=== PATIENT | female | born 1955 | race Caucasian/White ===

== ENCOUNTER 2025-02-21 08:50 | Outpatient (AMB) | payer BC, SELFPAY ==
--- OUTSIDE RECORDS SUMMARY | 2023-10-20 08:15 | XMS_ITS ---
Author Organization [facility] Address [address] [facility] [place] [address] Care Team Providers Care Terrazzo Tile Setter Name Role Phone Redd Cisse Primary Care Provider Unavaila ble Black, Sadie Unavailable [phone] Allergies Allergen (clinical drug ingredient) Drug/Non Drug Allergy documented on EMR Reaction Allergy Type Onset Date Status amoxicillin Amoxicillin Unknown Drug Allergy Act stanley amoxicillin / clavulanate Augmentin Unknown Drug Allergy Active sulfamethoxazole / trimethoprim Bactrim Unknown Drug Allergy Active phenytoin Dilantin Unknown Drug Allergy Active carbamazepine TEGretol Unknown Drug Allergy Act stanley amLODIPine Benzoate Unknown Drug Allergy Active REASON FOR VISIT PCP: 06/2023., Ankle pain, Foot pain Medications Medication SIG (Take, Route, Frequency, Duration) Notes Start Date End Date Status Omeprazole 20 MG 1 capsule 30 minutes before morning meal Orally Once a day; Duration: 30 day(s) 06/18/2023 Active Fenofibrate Micronized 200 MG Oral; Duration: 90 Days Acti ve Atorvastatin Calcium 20 MG Oral; Duration: 90 Days Active Divalproex Sodium 500 MG Oral; Duration: 90 Days Active amLODIPine Besylate 5 MG Oral; Duration: 90 Days Active Social History Tobacco Use: Social History Observation Description Date Details (start date - stop date) Never Smoker NA - NA Tobacco Use/Smoking Question Answer Notes Are you a: nonsmoker Additional Findings: Tobacco Non-User Current no n-smoker Alcohol Screen Question Answer Notes Did you have a drink containing alcohol in the p ast year? No Points 0 Interpretation Negative Tobacco use other than smoking: Question Answer Notes Are you an other tobacco user? No Vital Signs Height 5ft 4in in 10/20/2023 Weight 160 lbs 10/20/2023 BMI 27.46 kg/m2 10/20/2023 Encounters Encounter Location Date Provider [facility] [place] [address] 10/20/2023 Sadie Castellanos Arthralgia of right ankle M25.571 ; Osteoarthritis of right ankle or foot M19.071 ; Neuritis M79.2 ; Sprain of unspecified ligament of right ankle, initial encounter S93.401A ; Neuropathy G62.9 ; Sprain of anterior talofibular ligament of right ankle, initial encounter S93.491A ; Pronation of right foot M21.6X1 and Pronation of left foot M21.6X2 Assessments Encounter Date Diagnosis (ICD Code) Assessment Notes Treatment Notes Treatment Clinical Notes Section Notes 10/20/2023 Arthralgia of right ankle (ICD-10 - M25.571) 10/20/2023 Osteoarthritis of right ankle or foot (ICD-10 - M19.071) 10/20/2023 Neuritis (ICD-10 - M79.2) 10/20/2023 Sprain of unspecified ligament of right ankle, initial encounter (ICD-10 - S93.401A) 10/20/2023 Neuropathy (ICD-10 - G62.9) 10/20/2023 Sprain of anterior talofibular ligament of right ankle, initial encounter (ICD-10 - S93.491A) 10/20/2023 Pronation of right foot (ICD-10 - M21.6X1) 10/20/2023 Pronation of left foot (ICD-10 - M21.6X2) Plan Of Treatment Next Appt Details Follow Up: 2 Months, Reason: Progress Notes * Kandace HOWARD ADOB:1955 (70 yo F)Acc No.[id number]:10/20/2023 Progress Note Patient: Kandace REAL Provider: Champ Castellanos DPM :1955 A ge:68 Y S ex:Female Date:10/20/2023 Address:[address] [place] [address] , [place], [id number] Pcp:Redd Cisse Subjective: * Chief Complaints: * 1 . PCP: 06/2023.. 2. Ankle pain. 3. Foot pain. * HPI: A nkle Pain: Nature: a patricia , tenderness. Location: , Outside aspect of the Right ankle. Duration: s everal years. Onset/Cause: , gradual. Course: w orse OVER THE LAST YEAR. Aggravated by: a ny pressure, standing, walking,otc INSERTS. Treatments: r est/alter normal daily activity , pre-fabricated innersoles. Severity/Quality: m oderate. F oot Pain: Nature: s harp , burning. Location: B ottom , B/L. Duration: s everal years. Onset: g radual. Course: w orse. Aggravated: W orse at night when in bed. Treatments: T OPICAL LOTION , Custom-compounded topical anti-inflammatory cream. * ROS: G eneral/Constitutional: Nausea d enies. V omiting d enies. H jordyn Thirst d enies. L oss appetite d enies. C hills d enies. F atigue d enies.?Fever d enies. N ight Sweats d enies. U nexplained weight loss d enies. U nexplained weight gain d enies. H EENTM: Dentures d enies. D izziness d enies. G lasses/contacts d enies. R etinopathy d enies. B lurred/double vision d enies. T MJ?admits. D ischarge/drainage d enies. I mplants d enies. S ore throat d enies. D ental implants d enies. H diego of hearing d enies. D ifficulty chewing/swallowing/speaking d enies. N ose bleeds d enies. S ore mouth d enies. ? R espiratory: On Oxygen d enies. P neumonia/pleurisy d enies.?Bronchitis d enies. E mphysema d enies. C oughing d enies. C ough blood?denies. S hortness of breath d enies. W heezing d enies. C ardiovascular: Pacemaker d enies. M PAPER REWINDER OPERATOR d enies. W PW d enies. C HF d enies. H eart attack d enies. S eptal defect d enies. R apid beat d enies. C hest pain d enies. A trial Fib. d enies. M urmur/Palpitations d enies. G astrointestinal: Hemorrhoids d enies. S tomach/Abdominal pain d enies. D ark blood stool d enies. I rritable bowel d enies. C onstipation d enies. D iarrhea d enies. H ematology: Swelling d enies. C lots d enies. V aricose Veins d enies. B ruising d enies. B leeding problem d enies. G enitourinary: Blood urine d enies. F requent/Painfu/urination/bladder control d enies. K idney stones d enies. I nfection (UTI) d enies. N ephropathy d enies. s ex trans dis (STD) d enies. P rostate d enies. M usculoskeletal: Hammertoes d enies. B unions d enies. B ack Pain a dmits. M uscle Cramps/ Resting a dmits. M uscle cramps / walking a dmits.?Generalized aches and pains d enies. W eakness d enies. I nteg.: Haskins d enies. S cars d enies. C orns/calluses?denies. I ngrown nails d enies. P ainful nails d enies. O pen Sores d enies. R ashes d enies. N eurologic: Difficulty sleeping d enies. B rain disorder d enies. N umbness d enies. B alance trouble d enies. C onfusion d enies. F ainting/blackouts d enies. T ingling d enies. T remors d enies. * Medical History: A rthritis, Back,Hip,and Knee pain, Cataracts, Covid-19, Epilepsy, Headaches/Migraines, Hiatal hernia, High blood pressure, Reflux ( GERD), Sciatica, Sinusitis, Chicken pox. * Surgical History: c ataract surgery 2021. * Family History: M other: alive, arthritis. F ather: , arthritis, cancer, kidney/liver disease, heart attack, high blood pressure, poor circulation. * Social History: T obacco Use: T obacco Use/Smoking A re you a: n onsmoker A dditional Findings: Tobacco Non-User C urrent non-smoker Tobacco use other than smoking A re you an other tobacco user? N o D rugs/Alcohol: D rugs H ave you used drugs other than those for medical reasons in the past 12 months? N o Alcohol Screen D id you have a drink containing alcohol in the past year? N o P oints 0 I nterpretation N egative M iscellaneous: C affeine: yes. Children: yes, 2. Exercise: no. Marital status: . * Medications: T aking Divalproex Sodium 500 MG Tablet Delayed Release Oral , Taking Atorvastatin Calcium 20 MG Tablet Oral , Taking Fenofibrate Micronized 200 MG Capsule Oral , Taking Omeprazole 20 MG Capsule Delayed Release 1 capsule 30 minutes before morning meal Orally Once a day , Taking amLODIPine Besylate 5 MG Tablet Oral , Medication List reviewed and reconciled with the patient * Allergies: B actrim, Dilantin, TEGretol, amLODIPine Benzoate, Augmentin, Amoxicillin. Objective: * Vitals: H t: 5ft 4in, Wt:160, BMI:27.46, Shoe size: 10, Ht-cm: 162.56 cm, Wt-k.57 kg. * Examination: G eneral Examination: GENERAL APPEARANCE: R stephaneals a pleasant, alert, well nourished, well-developed, well hydrated individual, who demonstrates proper attention to hygiene/body habitus, and is in no acute distress, Pt serves as own historian for office visit today. ORIENTED: p erson, place, and time. O rthopedic: MUSCLE STRENGTH: 5 /5 all groups in a symmetrical fashion, B/L. GAIT ABNORMALITY: P ronated , abducted angle and base of gate , B/L. FOOT MORPHOLOGY: P t is able to toe raise with heels inverted , Pes Planus structure , Semi-rigid b/l , Decreased Ankle joint dorsiflexion ROM, knee extended.? BUNION: M edially prominent 1st MPJ , B/L. DIGITAL DEFORMITIES: D igital contracture, PIPJ, 2-5 B/L, incompl-reducible with WB, or to push-up test, no over, nor underlapping. ANKLE PAIN LOCATED: R IGHT , Lateral ankle , (+) swelling , Pain on palpation to , ATFL , PTFL , No pain at , Peroneal tendons, adipose tiees present lateral ankles b/l. FOOTWEAR EVALUATION: W orn, non-supportive, shoe gear properties exacerbate patients foot/toe deformity, OT are non-supportive providing cushion only no support. V ascular: DP PULSES (B): 2 /4, B/L. PT PULSES (B): 2 /4, B/L. CAPILLARY FILL TIME: i mmediate, all digits, B/L. TROPHIC CONDITION-TEXTURE/ELASTICITY/TURGOR/HAIR GROWTH (B):?normal , B/L. TEMPERTURE GRADIENT (C): n ormal, warm to cool, proximal to distal, B/L. PIGMENTATION: n ormal, B/L. EDEMA (C): 1 /4 , Ankle(s) , B/L. X -Rays - IMAGING REPORT: Clinical Indication(s): Evaluate for Fracture, Evaluate Biomechanical Deformity. Views: 3 views of Ankle, AP, LAT, LO , Are reviewed with the Pt. Findings: n ormal bone and soft tissue density consistent for patients age and sex , asymmetrical Ankle joint space narrowing , anteriorly , posteriorly , medial gutter , lateral gutter. Foot structure: r eveals excess pronation with , anterior break in cyme line. Fracture: N egative fractures identified. ? N eurological: SENSORY: N eurological exam reveals intact sensorium, pain sensation normal, vibration sensation intact, pinprick sensation is normal in the lower extremities, Pt denies, anesthesia, burning, paresthesia, tingling, B/L. Assessment: * Assessment: 1. A rthralgia of right ankle - M25.571 2 . O steoarthritis of right ankle or foot - M19.071 S pecify :Acute problem, Complicated w/ Multiple Tx Options(4),Dx New problem, Prognosis Uncertain (4) 3 . N euritis - M79.2 4 . S prain of unspecified ligament of right ankle, initial encounter - S93.401A 5 . N europathy - G62.9 ?6. S prain of anterior talofibular ligament of right ankle, initial encounter - S93.491A 7. P ronation of right foot - M21.6X1 8 . P ronation of left foot - M21.6X2 Plan: * Treatment: * Follow Up: 2 Months * Images: * The named appointment provid er may or may not be the originator of this progress note, and it is not deemed complete until electronically signed by the appointment provider. Sign off status: Pending * Provider: Champ Castellanos DPM Date: 0 10/20/2023 Generated for Lon kaufman/Roseline/eTransmitting on: 0 02/21/2025 09:31 AM EDT History and Physical Notes * HPI (History of Present Illness) Category Sub-Category Detail Notes Category Not es Ankle Pain Duration: several years Nature: aching , tenderness Severity/Quality: moderate Treatments: rest/alter normal da micheal activity , pre-fabricated innersoles Course: worse OVER THE LAST YEAR Location: , Outside aspect of the Right ankle Onset/Cause: , gradual Aggravated by: any pressure, standi ng, walking,otc INSERTS Foot Pain Nature: sharp , burning Location: Bottom , B/L Duration: several years Onset: gradual Course: worse Aggravated: Worse at night when in bed Treatments: TOPICAL LOTION , Cus isaac-compounded topical anti-inflammatory cream Examination Category Sub-Category Detail Notes Category Not es Neurological SENSORY: Neurological exa m reveals intact sensorium, pain sensation normal, vibration sensation intact, pinprick sensation is normal in the lower extremities, Pt denies, anesthesia, burning, paresthesia, tingling, B/L Orthopedic GAIT ABNORMALITY: Pronated , abd ucted angle and base of gate , B/L FOOT MORPHOLOGY: Pt is able to toe ra ise with heels inverted , Pes Planus structure , Semi-rigid b/l , Decreased Ankle joint dorsiflexion ROM, knee extended BUNION: Medially prominent 1 st MPJ , B/L ANKLE PAIN LOCATED: RIGHT , Lateral ankl e , (+) swelling , Pain on palpation to , ATFL , PTFL , No pain at , Peroneal tendons, adipose tiees present lateral ankles b/l FOOTWEAR EVALUATION: Worn, non-supportiv e, shoe gear properties exacerbate patients foot/toe deformity, OT are non-supportive providing cushion only no support DIGITAL DEFORMITIES: Digital contracture , PIPJ, 2-5 B/L, incompl-reducible with WB, or to push-up test, no over, nor underlapping MUSCLE STRENGTH: 5/5 all groups in a symmetrical fashion, B/L General Examination GENERAL APPEARANCE: Reveals a pleasant, alert, well nourished, well-developed, well hydrated individual, who demonstrates proper attention to hygiene/body habitus, and is in no acute distress, Pt serves as own historian for office visit today ORIENTED: person, place, and t kimber[facility] DP PULSES (B): 08/08, B/L PT PULSES (B): 08/08, B/L CAPILLARY FILL TIME: immediate, all digi ts, B/L TEMPERTURE GRADIENT (C): normal, warm to cool, proximal to distal, B/L TROPHIC CONDITION-TEXTURE/ELASTICITY/TURGOR/HAIR GROWTH (B): normal , B/L EDEMA (C): 07/08 , Ankle(s) , B/L PIGMENTATION: normal, B/L X-Rays - IMAGING REPORT Findings: normal b one and soft tissue density consistent for patients age and sex , asymmetrical Ankle joint space narrowing , anteriorly , posteriorly , medial gutter , lateral gutter Fracture: Negative fractures i dentified Foot structure: reveals excess prona tion with , anterior break in cyme line Views: 3 views of Ankle, AP , LAT, LO , Are reviewed with the Pt Clinical Indication(s): Evaluate for Fra cture, Evaluate Biomechanical Deformity
--- NOTE | 2025-02-21 08:56 | A.OFFVIS_ITS ---
Intake Visit Reasons: not feeling well asked to be seen sooner Accompanied by: Spouse Allergies benazepril Allergy (Unknown, Verified 02/21/25 09:02) Unknown Medication List - Last Reconciled 02/21/25 by Phyllis Jones CNP amlodipine 5 mg PO DAILY atorvastatin (Lipitor) 20 mg PO DAILY cholecalciferol (vitamin D3) 25 mcg PO DAILY divalproex (Depakote) 500 mg PO BID 90 days fenofibrate micronized 200 mg PO DAILY meclizine 25 mg PO TID omeprazole 20 mg PO DAILY HPI Comments Details: She started with vertigo on 02/02/2025. She has been using OTC meclizine 12.5-25mg as needed depending on severity of symptoms which seems to be helping, but makes her tired and she was unsure how long to take medication for. She was taking medication during the day. She felt like the room was spinning when laying or turning her head to the left side. Occasionally, it happened when laying flat on her back. It lasted about 10-45 seconds. She had some ringing on and off in left ear and left ear felt blocked at times. No decrease in hearing. Some occasional headaches. No recent cold or flu-like illness. Eyes are okay, no change in vision. No seizures. She has history of seizure disorder since 1992 that has been well controlled with Depakote. No seizure recurrence since 02/1993. No medication side effects. In 2005, she developed right-sided sciatica and herniated lumbar disc that resolved without surgery. Celiac disease controlled with gluten free diet. Review of Systems Const Denies chills, Denies daytime sleepiness, Denies difficulty sleeping, Denies f atigue, Denies fever(s), Denies frequent falls, Denies headache(s), Denies increased appetite, Denies poor appetite, Denies snoring, Denies weakness, Denies weight gain and Denies weight loss Eyes Denies loss of vision ENT Denies vertigo, Denies dizziness, Denies headache(s) and Denies neck pain Card Denies chest pain at rest, Denies chest pain with activity, Denies syncope, Denies leg edema, Denies palpitations, Denies dyspnea and Denies dyspnea on exertion Resp Denies cough, Denies dyspnea, Denies dyspnea on exertion and Denies snoring GI Denies abdominal pain, Denies constipation, Denies heartburn, Denies diarrhea and Denies nausea Denies urinary frequency, Denies urinary incontinence and Denies urinary urgency Musc Denies abnormal gait, Denies back pain, Denies myalgias, Denies arthralgias, Denies neck pain, Denies numbness and Denies tingling Neuro Denies abnormal gait, Denies vertigo, Denies dizziness, Denies syncope, Denies frequent falls, Denies headache(s), Denies lack of coordination, Denies loss of vision, Denies memory loss, Denies numbness, Denies Other visual disturbances, Denies restless legs, Denies seizure-like activity, Denies tingling, Denies paresthesias, Denies tremor(s) and Denies weakness Psych Denies anxiety, Denies depression, Denies auditory hallucinations, Denies memory loss and Denies visual hallucinations Endo Denies fatigue and Denies palpitations Physical Exam Const Other: General Appearance:? normal, in no acute distress. Heart:? S1, S2 normal, no murmurs. Lungs:? clear anteriorly and posteriorly. Musculoskeletal:? normal. Extremities:? no edema. Psych:? alert, oriented, cognitive function intact, cooperative with exam. Neuro Other: Abnormal Neurological Findings:?none.? Mental Status: alert and oriented X 3. Normal attention, orientation, memory, and affect. Cranial Nerves: Pupils are equal, round, and reactive to light. External ocular muscles are intact. Visual fatima are full, no ptosis. Face is symmetrical, no facial weakness or droop. Facial sensations are normal. Tongue protrudes in midline. Palate elevates symmetrically. Shoulder shrugging is normal Motor Examination: Normal muscle tone, bulk and strength. No atrophy or fasciculations. No drift of the extended upper extremities. DTR 2+. Plantars are flexor. Sensory Exam: Normal light touch, temperature, pinprick, vibration, and joint- position sensations. Rhomberg sign is absent. Coordination: No ataxia. No titubation. Bqlhas-wp-ywaq, bwpq-aghd-ndan test, and rapid alternating movements were normal. Gait Exam: Within normal limits. Cerebellar Signs: Xwfsxa-cy-juyr and bcvx-ll-lnvz is normal. No dysdiadocho kinesia. Extrapyramidal System: No tremor, rigidity with normal facial expressions. No bradykinesia. No bradyphrenia. Normal arm swing and posture. No propulsion or retropulsion. Speech: Normal. No dysphasia or dysarthria. Results Reviewed Results Reviewed: 11/02/2024 VA: 86 12/01/23 VA 69 10/20/[address] 01/20/22 negative Assessment & Plan Assessment & Plan (1) Epilepsy: Code(s): G40.909 - Epilepsy, unspecified, not intractable, without status epilepticus Category: Medical Qualifiers: Epilepsy type: unspecified Intractability: not intractable Status epilepticus: without status epilepticus Qualified Code(s): G40.909 - Epilepsy, unspecified, not intractable, without status epilepticus Plan: Continue divalproex sodium delayed release 500mg 1 tablet twice a day. (2) Vertigo: Code(s): R42 - Dizziness and giddiness Category: Medical Plan: Start meclizine 12.5mg 1 tablet at bedtime x1 week then 1 tablet twice a day as needed for dizziness, use/side effects reviewed. Depakote level ordered r/o toxiciticy. Orders: Orders Valproate Today G40.909 - Epilepsy, unspecified, not intractable, without status epilepticus Medications: New meclizine 12.5 mg orally 1 tab at bedtime x1 week then 1 tab BID as needed for dizziness; 60 tabs 2RF 30 days Discontinued meclizine Discontinued Reason: Order 25 mg PO TID Coding Level of Care Code Est Pt Level 4 (97389) Diagnoses Nonintractable epilepsy without status epilepticus, unspecified epilepsy type G40.909 Epilepsy type: unspecified Intractability: not intractable Status epilepticus: without status epilepticus Vertigo R42
--- OUTSIDE RECORDS SUMMARY | 2025-02-21 09:31 | XMS_ITS | Encounter Summary ---
Author Organization [facility] Address [address] [place] [address] Phone Care Team Providers Care Social Problems Specialist Name Role Phone Nader Martines DIRECTOR OF ATHLETICS Primary Care Provider [phone] Encounter Details Date Type Department Care Team (Late st Contact Info) Description 12/06/2020 Documentation Only [facility] [address] [place] [id number] Jazmyne Carmona MA Social History Tobacco Use Types Packs/Day Years Used Date Smoking Tobacco: Never Assessed Comments Unknown Sex and Gender Information Value Date Recorded Sex Assigned at Not on file Legal Sex Female 9:48 AM EDT Gender Identity Not on file Sexual Orientation Not on file COVID-19 Exposure Response Date Recorded In the last month, have you been in contact with someone who was confirmed or suspected to have Coronavirus / COVID-19? No / Unsure 11/28/2020 11:08 AM EDT documented as of this encounter Plan of Treatment Not on file documented as of this encounter Visit Diagnoses Not on filedocumented in this encounter Care Teams Social Problems Specialist Relationship Specialty Start Date End Date Nader Martines NP [address] [place] [address] PCP - General Internal Medicine 10/31/20 documented as of this encounter
--- OUTSIDE RECORDS SUMMARY | 2025-02-21 09:31 | XMS_ITS | Clinical Summary ---
Author Organization [facility] Address [address] [place] [address] Care Team Providers Care Pottery Striper Name Role Phone Yoli Monge MD Primary Care Provider Allergies Active Allergy Reactions Criticality Noted Date Comments Amoxicillin-Pot Clavulanate GI Intolerance 01/02 Phenytoin Hives 01/16/2017 Penicillins GI Intolerance 01/16/2017 Sulfa (Sulfonamide Antibiotics) Hives 01/02 Carbamazepine Hives 01/16/2017 Medications divalproex (DEPAKOTE) 500 MG EC tabletIndicatio ns:also to take 250mg at noon time Take 500 mg by mouth every morning & every evening. Active atorvaSTATin (LIPITOR) 20 MG tablet Take 20 mg by mouth daily. Active fenofibrate (TRIGLIDE) 160 MG tablet Take 160 mg by mouth daily. Active omeprazole [address] tablet Take 20 mg by mouth daily. Active oxyCODONE (ROXICODONE) 5 MG immediate release tablet Take 1 tablet (5 mg total) by mouth every 4 hours as needed for pain. Dispense only nine tabs, no refils 9 tablet 01/16/2017 Active Social History Tobacco Use Types Packs/Day Years Used Date Smoking Tobacco: Never Alcohol Use Standard Drinks/Week Comments No 0 (1 standard drink = 0.6 oz pur e alcohol) Comments Unknown Sex and Gender Information Value Date Recorded Sex Assigned at Not on file Legal Sex Female 1:06 PM EDT Gender Identity Not on file Sexual Orientation Not on file Last Filed Vital Signs Vital Sign Reading Time Taken Comments Blood Pressure 108/82 01/16/2017 7:00 PM EDT Pulse 81 01/16/2017 7:00 PM EDT Temperature 36.6 C (97.9 F) 01/16/2017 1:13 PM EDT Respiratory Rate 16 01/16/2017 7:00 PM EDT Oxygen Saturation 94% 01/16/2017 7:00 PM EDT Inhaled Oxygen Concentration - - Weight - - Height 160 cm (5' 3 ) 01/16/2017 1:06 PM EDT Body Mass Index - - Plan of Treatment Not on file [place] [address] [place] [address] Care Teams Pottery Striper Relationship Specialty Start Date End Date Yoli Monge MD [address] [place] [address] PCP - General Internal Medicine 01/16/17
== END 2025-02-21 09:18 | disposition home or self-care (01) ==
LOC: HO.HSM 08:51
PROVIDERS: PCP Internal Medicine; Visit Provider Registered Nurse
DX: G40.909 Epilepsy, unspecified, not intractable, without status epilepticus (principal); R42 Dizziness and giddiness
CPT/HCPCS: 99214

== ENCOUNTER 2025-06-13 13:03 | Outpatient (AMB) | payer BC, SELFPAY ==
--- OUTSIDE RECORDS SUMMARY | 2025-06-07 23:59 | XMS_ITS | Continuity of Care Document ---
Author Organization [facility] [place] Address [address] [place] [address]- Care Team Providers Care Washing Tub Operator Name Role Phone Redd Villatoro Primary Care Physician Encounter [facility] Date(s): 05/08/25 - 06/07/25 [facility] [place] [address] [place] [address]- Encounter Type: Triage Allergies, Adverse Reactions, Alerts Substance Criticality Severity Reaction Reaction Severity Status benazepril Low criticality Mild Act stanley penicillins Active TEGretol Active sulfa drugs Active Dilantin Active Immunizations Given and Recorded Vaccine Date Status Refusal Reason tetanus/diphtheria/pertussis, acel(Tdap) 11/09/24 Given influenza virus vaccine, inactivated 04/18/24 Nathan rded influenza virus vaccine, inactivated 05/14/23 Nathan rded influenza virus vaccine, inactivated 04/02/22 Nathan rded influenza virus vaccine, inactivated 06/10/21 Nathan rded influenza virus vaccine, inactivated 04/19/19 Nathan rded influenza virus vaccine, inactivated 04/25/18 Nathan rded influenza virus vaccine, inactivated 04/08/18 Give n SARS-CoV-2(COVID-19)mRNA-LNP vac([id number]) 04/18/24 Recorded [id number] 12y+ bivalent booster vax 04/16/22 Given SARS-CoV-2 (COVID-19) mRNA BNT-162b2 vac 1 07/04/21 Recorded SARS-CoV-2 (COVID-19) mRNA BNT-162b2 vac 09/28/20 Recorded SARS-CoV-2 (COVID-19) mRNA BNT-162b2 vac 09/07/20 Recorded Influenza Virus Vaccine (oldterm) 04/03/20 Recorde d Afluria (oldterm) 06/15/16 Given Fluzone Preservative-Free (oldterm) 05/20/15 Given 1Result Comment: given at [facility] Medications amLODIPine 5 mg oral tablet 1 tablet, By Mouth, Daily, # 90 tablet, 1 Refills, Maintenance, 05/23/25 12:48:00 PM EST, [employer] [id number], 166, cm, 03/22/25 9:59:00 EDT, Height Start Date: 05/23/25 Status: Ordered Medication Dispense Status: Completed Quantity: 90.0 Unit: tablet Total Allowed Fills: 1 Fills Dispensed: 0 atorvastatin 20 mg oral tablet 1 tablet, By Mouth, Daily at bedtime, # 90 tablet, 1 Refills, Maintenance, 05/23/25 12:48:00 PM EST, [id number], 166, cm, 03/22/25 9:59:00 EDT, Height Start Date: 05/23/25 Status: Ordered Medication Dispense Status: Completed Quantity: 90.0 Unit: tablet Total Allowed Fills: 1 Fills Dispensed: 0 Depakote 500 mg oral enteric coated tablet 1 tablet = 500 mg, By Mouth, 2 times a day, # 180 tablet, 0 Refills, Maintenance, 06/08/23 11:15:00 AM EST, Tablet, [facility]/pharm[facility] #[id number], Partial fill upon patient request if the prescription is for a schedule II opioid drug., 166, cm, 06/04/23 13:07:00 EST, Height, 67, kg, 11/06/22 14:29:00 EDT, Dry Weight Start Date: 06/08/23 Status: Ordered Medication Dispense Status: Completed Quantity: 180.0 Unit: tablet Total Allowed Fills: 1 Fills Dispensed: 0 EPINEPHrine 0.3 mg injectable solution = 0.3 mg, Intramuscular, Once, PRN anaphylaxis. may repeat if necessary, # 1 kit, 1 Refills, Soft Stop, 08/25/21 2:52:00 PM EST, [facility]/pharm[facility] #[id number], 160, cm, 08/25/21 14:12:00 EST, Height, 69.8, kg, 09/26/20 12:50:00 EDT, Dry Weight Start Date: 08/25/21 Status: Ordered Medication Dispense Status: Completed Quantity: 1.0 Unit: kit Total Allowed Fills: 2 Fills Dispensed: 0 fenofibrate 200 mg oral capsule 1 capsule, By Mouth, Daily, # 90 capsule, 1 Refills, Maintenance, 05/27/25 7:12:00 PM EST, [id number], 166, cm, 03/22/25 9:59:00 EDT, Height Start Date: 05/27/25 Status: Ordered Medication Dispense Status: Completed Quantity: 90.0 Unit: capsule Total Allowed Fills: 1 Fills Dispensed: 0 [employer] [place]-3 = 1,200 mg, By Mouth, 3 times a day, 0 Refills, Maintenance, 11/09/24 11:57:00 AM EDT, Partial fill upon patient request if the prescription is for a schedule II opioid drug. Start Date: 11/09/24 Status: Ordered Medication Dispense Status: Completed Total Allowed Fills: 1 Fills Dispensed: 0 magnesium sulfate/potassium sulfate/sodium sulfate 1.6 g-3.13 g-17.5 g/177 mL oral liquid See Instructions, Take the first 6 oz bottle with 48 oz water at 5PM night before before colonoscopy, and the second 6 oz bottle with 48 oz of water 6 hrs before colonoscopy., # 354 mL, 0 Refills, Maintenance, 03/22/25 10:18:00 AM EDT, [facility]/pharm[facility] #[id number], Partial fill upon patient request if the prescription is for a schedule II opioid drug., Take the first 6 oz bottle with 48 oz water at 5PM night before before colonoscopy, and the second 6 oz bottle with 48 oz of water 6 hrs before colonoscopy., 166, cm, 03/22/25 9:59:00 EDT, Height Start Date: 03/22/25 Status: Ordered Medication Dispense Status: Completed Quantity: 354.0 Unit: mL Total Allowed Fills: 1 Fills Dispensed: 0 Indications: Encounter for screening for malignant neoplasm of colon; Celiac disease; NuLYTELY [place] oral powder for reconstitution 240 mL, By Mouth, Every 10 minutes, # 1 each, 0 Refills, Maintenance, 05/06/23 11:33:00 AM EDT, REC Powder, [id number], Partial fill upon patient request if the prescription is for a schedule II opioid drug., 166, cm, 12/03/22 10:44:00 EDT, Height, 67, kg, 11/06/22 14:29:00 EDT, Dry Weight Start Date: 05/06/23 Status: Ordered Medication Dispense Status: Completed Quantity: 1.0 Unit: each Total Allowed Fills: 1 Fills Dispensed: 0 omeprazole 20 mg oral enteric coated capsule 1 capsule = 20 mg, By Mouth, 2 times a day, # 60 capsule, 2 Refills, Maintenance, 04/11/20 4:11:00 PM EDT, EC Capsule, 165.4, cm, 07/12/19 11:51:00 EST, Height, 80.6, kg, 12/08/18 13:26:00 EDT, Dry Weight Start Date: 04/11/20 Stop Date: 07/10/20 Status: Ordered Medication Dispense Status: Completed Quantity: 60.0 Unit: capsule Total Allowed Fills: 3 Fills Dispensed: 0 Vitamin D3 1000 intl units oral capsule See Instructions, 1 capsule By Mouth every day, 0 Refills, Maintenance, 07/12/19 11:38:00 AM EST Start Date: 07/12/19 Status: Ordered Medication Dispense Status: Completed Total Allowed Fills: 1 Fills Dispensed: 0 Problem List Condition Confirmation Course Effective Dates Status Health Status Informant Acute sinusitis Confirmed Active Cataract Confirmed Active Celiac disease Confirmed Active Chronic kidney disease, stage 3a 1 Confirmed Active epilepsy Confirmed Active Esophageal reflux Confirmed Active GERD (gastroesophageal reflux disease) Confirmed Active Hypercholesterolemia Confirmed Active Hyperlipidemia Confirmed Active Hypertension Confirmed Active Lumbar radiculopathy, right Confirmed Active Lymphocytosis Confirmed Active Right otitis media Confirmed Active Encounter for screening colonoscopy Confirmed Active Vitamin D deficiency Confirmed 05/09/18 Active 1Per chart review meeting GFR criteria Social History Social History Type Response Smoking Status Never (less than 100 in lifetime) entered on: 11/06/22 Sex Sex Representation Female (finding) Patient Care team information Care Team Personnel Name: Redd Villatoro Position: S PCO Associate Professional Member Role: PCP Address: [address] [place] [address] [place], [place] [address] Telecom: Care Team Related Persons Name: CARLOS HOWARD Insurance Providers Guarantor name: NOEMÍ HOWARD Health Plan Information #: 1 Payer: [employer] P[employer] Payer Identifier: NA Member Number: [id number] Group Number: [id number] Subscriber Identifier: NA Relationship to Subscriber: self Coverage Type: Medicare PPO Coverage Verification Date: NA Telecom: NA Address: NA
--- NOTE | 2025-06-13 13:05 | A.OFFVIS_ITS ---
Intake Visit Reasons: 6m Accompanied by: Spouse Allergies benazepril Allergy (Unknown, Verified 06/13/25 13:07) Unknown Medication List - Last Reconciled 06/13/25 by Phyllis Jones CNP amlodipine 5 mg PO DAILY atorvastatin (Lipitor) 20 mg PO DAILY cholecalciferol (vitamin D3) 25 mcg PO DAILY divalproex (Depakote) 500 mg PO BID 90 days fenofibrate micronized 200 mg PO DAILY meclizine 12.5 mg orally 1 tab at bedtime x1 week then 1 tab BID as needed for dizziness; 30 days omeprazole 20 mg PO DAILY HPI Comments Details: She was doing okay. She was taking Depakote twice a day, no medication side effects. No seizures. No further episodes of vertigo, meclizine as needed helped. Sleep was okay. She had episode of vertigo in 02/2025. She felt like the room was spinning when laying or turning her head to the left side. Occasionally, it happened when laying flat on her back. It lasted about 10-45 seconds. She had some ringing on and off in left ear and left ear felt blocked at times. No decrease in hearing. Some occasional headaches. No recent cold or flu-like illness. She has history of seizure disorder since 1992 that has been well controlled with Depakote. No seizure recurrence since 02/1993. No medication side effects. In 2005, she developed right-sided sciatica and herniated lumbar disc that resolved without surgery. Celiac disease controlled with gluten free diet. Review of Systems Const Denies chills, Denies daytime sleepiness, Denies difficulty sleeping, Denies fatigue, Denies fever(s), Denies frequent falls, Denies headache(s), Denies increased appetite, Denies poor appetite, Denies snoring, Denies weakness, Denies weight gain and Denies weight loss Eyes Denies loss of vision ENT Denies vertigo, Denies dizziness, Denies headache(s) and Denies neck pain Card Denies chest pain at rest, Denies chest pain with activity, Denies syncope, Denies leg edema, Denies palpitations, Denies dyspnea and Denies dyspnea on exertion Resp Denies cough, Denies dyspnea, Denies dyspnea on exertion and Denies snoring GI Denies abdominal pain, Denies constipation, Denies heartburn, Denies diarrhea and Denies nausea Denies urinary frequency, Denies urinary incontinence and Denies urinary urgency Musc Denies abnormal gait, Denies back pain, Denies myalgias, Denies arthralgias, Denies neck pain, Denies numbness and Denies tingling Neuro Denies abnormal gait, Denies vertigo, Denies dizziness, Denies syncope, Denies frequent falls, Denies headache(s), Denies lack of coordination, Denies loss of vision, Denies memory loss, Denies numbness, Denies Other visual disturbances, Denies restless legs, Denies seizure-like activity, Denies tingling, Denies paresthesias, Denies tremor(s) and Denies weakness Psych Denies anxiety, Denies depression, Denies auditory hallucinations, Denies memory loss and Denies visual hallucinations Endo Denies fatigue and Denies palpitations Physical Exam Const Other: General Appearance:? normal, in no acute distress. Heart:? S1, S2 normal, no murmurs. Lungs:? clear anteriorly and posteriorly. Musculoskeletal:? normal. Extremities:? no edema. Psych:? alert, oriented, cognitive function intact, cooperative with exam. Neuro Other: Abnormal Neurological Findings:?none.? Mental Status: alert and oriented X 3. Normal attention, orientation, memory, and affect. Cranial Nerves: Pupils are equal, round, and reactive to light. External ocular muscles are intact. Visual fatima are full, no ptosis. Face is symmetrical, no facial weakness or droop. Facial sensations are normal. Tongue protrudes in midline. Palate elevates symmetrically. Shoulder shrugging is normal Motor Examination: Normal muscle tone, bulk and strength. No atrophy or fasciculations. No drift of the extended upper extremities. DTR 2+. Plantars are flexor. Sensory Exam: Normal light touch, temperature, pinprick, vibration, and joint- position sensations. Rhomberg sign is absent. Coordination: No ataxia. No titubation. [id number], [id number] test, and rapid alternating movements were normal. Gait Exam: Within normal limits. Cerebellar Signs: [id number] is okay. Extrapyramidal System: No tremor, rigidity with normal facial expressions. No bradykinesia. No bradyphrenia. Normal arm swing and posture. No propulsion or retropulsion. Speech: Normal. Results Reviewed Results Reviewed: 05/04/2025 VA: 40 (slightly low, last dose was night prior) 11/02/2024 VA: 86 12/01/23 VA 69 10/20/[address] 01/20/22 negative Assessment & Plan Assessment & Plan (1) Epilepsy: Code(s): G40.909 - Epilepsy, unspecified, not intractable, without status epilepticus Category: Medical Qualifiers: Epilepsy type: unspecified Intractability: not intractable Status epilepticus: without status epilepticus Qualified Code(s): G40.909 - Epilepsy, unspecified, not intractable, without status epilepticus Plan: Continue divalproex sodium delayed release 500mg 1 tablet twice a day. Follow up in 6 months or sooner as needed. (2) Vertigo: Code(s): R42 - Dizziness and giddiness Category: Medical Plan: Continue meclizine 12.5mg 1 tablet twice a day as needed for dizziness #60 for 30 days. Coding Level of Care Code Est Pt Level 4 (06904) Diagnoses Nonintractable epilepsy without status epilepticus, unspecified epilepsy type G40.909 Epilepsy type: unspecified Intractability: not intractable Status epilepticus: without status epilepticus Vertigo R42
--- OUTSIDE RECORDS SUMMARY | 2025-06-13 20:09 | XMS_ITS | Clinical Summary ---
Author Organization [facility] Address [address] [place] [address] Care Team Providers Care Tax Assessor Name Role Phone Yoli Monge MD Primary [...] Plan of Treatment Not on file [place] [place] [address] Care Teams Tax Assessor Relationship Specialty Start Date End Date Yoli Monge MD [address] [place] [address] PCP - General Internal Medicine 01/16/17
--- OUTSIDE RECORDS SUMMARY | 2025-06-13 20:10 | XMS_ITS | Patient Health Record ---
Author Organization [facility] Address [address] [facility] [place] [address] Care Team Providers Care Car Seat Coverer Name Role Phone Redd Cisse Primary Care Provider Unavaila john Black, Sadie Unavailable [phone] Allergies Allergen (clinical drug ingredient) Drug/Non Drug Allergy documented on EMR Reaction Allergy Type Onset Date Status amoxicillin Amoxicillin Unknown Drug Allergy Act stanley amoxicillin / clavulanate Augmentin Unknown Drug Allergy Active sulfamethoxazole / trimethoprim Bactrim Unknown Drug Allergy Active phenytoin Dilantin Unknown Drug Allergy Active carbamazepine TEGretol Unknown Drug Allergy Act stanley amLODIPine Benzoate Unknown Drug Allergy Active Reason For Referral No Information Medications Medication SIG (Take, Route, Frequency, Duration) [...] Are you an other tobacco user? 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) Active confirmed Problem Localized, primary osteoarthritis of the ankle and/or foot (758405764) Osteoarthritis of left ankle or foot (M19.072) Active confirmed Plan Of Treatment No Information Insurance Providers Payer Name Payer Address Payer Phone Subscriber Number Group Number Insured Name Patient Relationship to Insured Coverage Start Date Coverage End Date [employer] 65 Medicare Preferred [address] [place] [address] [id number] Kandace Ortiz Self - patient is the insured Medical (General) History Medical History History ICD Code Arthritis Back,Hip,and Knee pain Cataracts covid-19 Epilepsy Headaches/Migraines Hiatal hernia High blood pressure Reflux ( GERD) Sciatica sinusitis Chicken pox Surgical History Surgery Date(Month/Year) cataract surgery 2021
== END 2025-06-13 13:19 | disposition home or self-care (01) ==
LOC: HO.HSM 13:04
PROVIDERS: PCP Internal Medicine; Referring Provider Internal Medicine; Visit Provider Registered Nurse
DX: G40.909 Epilepsy, unspecified, not intractable, without status epilepticus (principal); R42 Dizziness and giddiness
CPT/HCPCS: 99214